=== PATIENT | female | born 1975 | race Caucasian/White ===

== ENCOUNTER 2018-05-31 11:15 | Outpatient (CLI) | payer BC | END 2018-05-31 11:16 | disposition home or self-care (01) | LOC: BICMAMMO 11:15 | PROVIDERS: ATTEND Family Medicine | DX: Z12.31 Encounter for screening mammogram for malignant neoplasm of breast (principal) | CPT/HCPCS: 77063; 77067 ==

== ENCOUNTER 2020-07-11 07:50 | Outpatient (CLI) | payer BC | END 2020-07-11 07:51 | disposition home or self-care (01) | LOC: BICMAMMO 07:50 | PROVIDERS: ATTEND Nurse Practitioner Family | DX: Z12.31 Encounter for screening mammogram for malignant neoplasm of breast (principal) | CPT/HCPCS: 77063; 77067 ==

== ENCOUNTER 2021-09-17 14:53 | Emergency (ER) | payer BC ==
[2021-09-17] MEDS ORDERED: Ondansetron ODT 4 MG TAB ONE (15:00)
[2021-09-17 16:53] LABS: #Lymphocytes 1.1 thou/uL (1.20-3.40); #Monocytes 0.3 thou/uL (0.11-0.59); #Neutrophils 8.1 thou/uL (1.40-6.50); %Basophils 0.4 % (0.0-1.0); %Eosinophils 0.2 % (0.0-10.0); %Lymphocytes 11.3 % (21.0-51.0); %Monocytes 3.6 % (0.0-10.0); %Neutrophils 84.5 % (42.0-75.0); Mean Corpuscular HGB CONC 34.5 g/dL (32.0-36.0); Mean Corpuscular Hemoglobin 33.8 pg (27.0-31.0); Mean Corpuscular Volume 97.9 fL (78.0-98.0); Platelet Count 387 thou/uL (130-400); RBC Distribution Width 12.5 % (11.5-14.5); Red Blood Cell (RBC) Count 4.15 mill/uL (4.20-5.40); White Blood Cell (WBC) Count 9.6 thou/uL (4.8-10.8)
[2021-09-17] MEDS ORDERED: Metoclopramide HCl 10 MG/2 ML VIAL ONE (17:28)
[2021-09-17] MEDS ORDERED: Ketorolac Tromethamine 30 MG/ML VIAL ONE (17:28)
[2021-09-17] MEDS ORDERED: diphenhydrAMINE 50 MG/ML VIAL ONE (17:28)
[2021-09-17 17:42] LABS: BHCG - Serum Negative (NEGATIVE)
[2021-09-17 17:43] LABS: Pregs Control Background? CLEAR/WHITE (CLR/WHITE); Pregs Control Bar Appear? YES (CONTROL BAR)
[2021-09-17 17:50] LABS: ALT (SGPT) 36 U/L (8-55); AST (SGOT) 17 U/L (5-34); Albumin 4.5 g/dL (3.5-5.0); Alkaline Phosphatase 66 U/L (40-110); Anion Gap 15 mmol/L (10-20); BUN (Urea Nitrogen) 14 mg/dL (7.0-18.7); Bilirubin, Total 0.9 mg/dL (0.2-1.2); Calc. Creatinine Clearance 0 mL/min (70-130); Calcium 9.4 mg/dL (7.8-10.44); Carbon Dioxide 22 mmol/L (22-29); Chloride 108 mmol/L (98-107); Globulin 2.8 g/dL (2.4-3.5); Glucose 122 mg/dL (70-105); Lipase 14 U/L (8-78); Potassium 4.3 mmol/L (3.5-5.1); Protein, Total 7.3 g/dL (6.0-8.3); Sodium 141 mmol/L (136-145)
== END 2021-09-17 18:25 | disposition home or self-care (01) ==
LOC: ERS 14:53
DX: B34.9 Viral infection, unspecified (principal); R51.9 Headache, unspecified; R11.2 Nausea with vomiting, unspecified
CPT/HCPCS: 36415; 70450; 80053; 83690; 84703; 85025; 96361; 96365; 96375; J1200; J1885; J2765; Q0162